=== PATIENT | female | born 1985 | race Two or more races ===

== ENCOUNTER 2021-04-03 23:10 | Emergency (ER) | payer OTHER ==
[~2021-04-03] VITALS: Ht 165.1 cm; Wt 90.7 kg
[2021-04-04 02:40] VITALS: BP 158/92
== END 2021-04-04 02:50 | disposition home or self-care (01) ==
LOC: ER 23:11
DX: G89.11 Acute pain due to trauma (principal); R51.9 Headache, unspecified; Z88.8 Allergy status to other drugs, medicaments and biological substances; W18.39XA Other fall on same level, initial encounter; Y93.89 Activity, other specified; Y92.89 Other specified places as the place of occurrence of the external cause; Y99.8 Other external cause status
CPT/HCPCS: 70450; 72125